=== PATIENT | female | born 1990 | race Caucasian/White ===

== ENCOUNTER 2017-03-23 10:17 | Observation (INO) | payer MEDICAID ==
[2017-03-23 12:07] VITALS: BP 129/56; PULSE 88
== END 2017-03-23 11:50 | disposition home or self-care (01) ==
LOC: OB 10:17
PROVIDERS: ADMIT Family Medicine; ATTEND Family Medicine
DX: Z34.83 Encounter for supervision of other normal pregnancy, third trimester (principal)
CPT/HCPCS: 59025; G0378

== ENCOUNTER 2017-04-12 08:12 | Observation (INO) | payer MEDICAID ==
--- NOTE | 2017-04-12 09:51 | XRAY ---
Indication: Evaluate SINDHU. Limited OB ultrasound performed to evaluate SINDHU. There is a single viable intrauterine with heart rate 135 BPM. 4 quadrant SINDHU is 11.2 cm, previously 14.3 cm February 24, 2017.
[2017-04-12 10:23] VITALS: BP 113/64; PULSE 90
== END 2017-04-12 10:10 | disposition home or self-care (01) ==
LOC: OB 08:12
PROVIDERS: ADMIT Family Medicine; ATTEND Family Medicine
DX: Z34.83 Encounter for supervision of other normal pregnancy, third trimester (principal)
CPT/HCPCS: 59025; 76815; G0378

== ENCOUNTER 2017-04-15 08:11 | Observation (INO) | payer MEDICAID ==
[2017-04-15 09:14] VITALS: BP 114/55; PULSE 82
== END 2017-04-15 09:35 | disposition home or self-care (01) ==
LOC: OB 08:11
PROVIDERS: ADMIT Family Medicine; ATTEND Family Medicine
DX: Z34.83 Encounter for supervision of other normal pregnancy, third trimester (principal)
CPT/HCPCS: 59025; G0378

== ENCOUNTER 2017-04-16 01:50 | Inpatient (IN) | payer MEDICAID ==
[2017-04-16] MEDS ORDERED: Cervidil 10 MG VAG SCH (18:00)
[2017-04-16] MEDS ORDERED: XYLOCAINE 1% HCL 20 ML MDV IJ PRN (18:00)
[2017-04-16] MEDS ORDERED: Lactated Ringers 1,000 ML IV SCH (18:00)
[2017-04-16] MEDS ORDERED: PITOCIN 30 UNITS/ LR 500 ML 500 ML IV SCH ×2 (18:00)
[2017-04-16] MEDS ORDERED: OMNIPEN 2 GM / NACL 100ML 100 ML IV SCH (18:00)
[2017-04-16] MEDS ORDERED: BRETHINE 1 MG/ML SQ PRN (18:00)
[2017-04-16] MEDS ORDERED: OMNIPEN 2 GM IV SCH (18:00)
[2017-04-16 19:14] LABS: BASOPHIL % 0.3 % (0.0-0.4); Basophil (Absolute #) 0.03 (0-0.4); Eosinophil % 4.4 % (0.00-5.0); Eosinophil (Absolute #) 0.38 (0-0.5); Granulocyte Absolute (ANC) 5.96 (1.4-6.9); Granulocytes % 69.4 % (36.0-66.0); Hematocrit 34.1 % (35-47); Hemoglobin 11.4 gm/dl (12.0-16.0); Lymphocytes % 20.9 % (24.0-44.0); Mean Cell Volume 90.2 fl (78-100); Mean Corpuscular Hgb Concent. 33.4 g/dl (32-36); Mean Platelet Volume 11.5 fl (6-9.5); Monocyte (Absolute #) 0.43 (0.0-1.3); Platelet Count 216 K/mm3 (150-450); Red Blood Count 3.78 M/mm3 (4.1-5.4); Red Cell Distribution Width 13.7 % (11.5-14.0); White Blood Count 8.6 K/mm3 (4.0-10.5)
[2017-04-16 19:19] LABS: Mean Corpuscular Hemoglobin 30.1 pg (26-32)
[2017-04-16 19:42] LABS: Amphetamine,Urine NEG. (NEGATIVE); Barbiturate,Urine NEG. (NEGATIVE); Benzodiazepine,Urine NEG. (NEGATIVE); Cocaine,Urine NEG. (NEGATIVE); Methadone,Urine NEG. (NEGATIVE); Opiate,Urine NEG. (NEGATIVE); PCP,Urine NEG. (NEGATIVE); THC,Urine NEG. (NEGATIVE)
[2017-04-16] MEDS ORDERED: OMNIPEN 1GM / NaCl 100ML 100 ML IV SCH (22:00)
[2017-04-16] MEDS: TYLENOL EXTRA STRENGTH 500 MG PO PRN (23:20)
[2017-04-17] MEDS ORDERED: Nubain 10 MG/ML IV ONE
[2017-04-17] MEDS ORDERED: OMNIPEN 2 GM / NACL 100ML 100 ML ONE (02:04)
[2017-04-17] MEDS ORDERED: Dermoplast Spray TP PRN (03:52)
[2017-04-17] MEDS ORDERED: Ambien 10 MG PO PRN (03:52)
[2017-04-17] MEDS ORDERED: CORTISONE 1% CREAM TP PRN (03:52)
[2017-04-17] MEDS ORDERED: NORCO 5/325 MG PO PRN (03:52)
[2017-04-17] MEDS ORDERED: Adacel Vial IM ONE (03:52)
[2017-04-17] MEDS ORDERED: TUCKS TP PRN (03:52)
[2017-04-17] MEDS ORDERED: LANSINOH 40 GM TOP PRN (03:52)
[2017-04-17] MEDS ORDERED: Mylicon 80MG PO PRN (03:52)
[2017-04-17] MEDS ORDERED: Restoril 15 MG PO PRN (03:52)
[2017-04-17] MEDS: MOTRIN 400 MG PO PRN ×2 (04:06→11:52)
[2017-04-17 06:15] VITALS: O2SAT 100
[2017-04-17] MEDS: Colace 100 MG PO SCH ×2 (09:53→22:04)
[2017-04-17] MEDS: FERREX 150 PO SCH (09:53)
[2017-04-18 05:38] LABS: BASOPHIL % 0.2 % (0.0-0.4); Basophil (Absolute #) 0.02 (0-0.4); Eosinophil % 4.5 % (0.00-5.0); Granulocyte Absolute (ANC) 6.93 (1.4-6.9); Granulocytes % 61.9 % (36.0-66.0); Hematocrit 31.1 % (35-47); Hemoglobin 10.2 gm/dl (12.0-16.0); Lymphocyte (Absolute #) 3.16 (1.0-4.6); Lymphocytes % 28.2 % (24.0-44.0); Mean Corpuscular Hgb Concent. 32.8 g/dl (32-36); Monocyte (Absolute #) 0.58 (0.0-1.3); Monocytes % 5.2 % (0.0-12.0); Platelet Count 258 K/mm3 (150-450); Red Blood Count 3.38 M/mm3 (4.1-5.4); Red Cell Distribution Width 13.8 % (11.5-14.0); White Blood Count 11.2 K/mm3 (4.0-10.5)
[2017-04-18 05:43] LABS: Mean Corpuscular Hemoglobin 30.1 pg (26-32)
[2017-04-18] MEDS: FERREX 150 PO SCH (11:29)
[2017-04-18] MEDS: Colace 100 MG PO SCH ×2 (11:29→22:30)
[2017-04-18] MEDS: TYLENOL EXTRA STRENGTH 500 MG PO PRN (17:07)
--- NOTE | 2017-04-19 09:14 | PCM.DS ---
Discharge Summary Date of Admission: 04/17/17 01:50 Admitting Physician: JACQUELINE FORDE Consults: Consults on Case 04/17/17 03:53 Notify Physician Primary Care Provider: JACQUELINE FORDE Allergies Allergies No Known Drug Allergies Allergy (Verified 04/16/17 20:25) Hospital Summary - Hospital Course Hospital Course: Mom is a 26 yo who came in at term for an induction of labor. Cervadil was placed, pt started chele, and cervadil was expelled. She progressed to 8-9 cm which is when I came in. She was noted to be 9 cm, had no epidural but well controlled breathing. She noted she had to push and baby's head crowned. Very short second stage. No repair needed. SROM at 9 cm with meconium stained fluid. RT present at , did suction a small amount of fluid from baby. Baby has done well. Mom's bleeding is nl. Up and about with no issues. Ready to d/c today. - Vitals & Intake/Output Vital Signs: Vital Signs Temperature 98.3 F 04/19/17 02:00 Pulse Rate 83 04/19/17 02:00 Respiratory Rate 18 04/19/17 02:00 Blood Pressure 113/72 04/19/17 02:00 O2 Sat by Pulse Oximetry 100 04/17/17 03:00 Intake & Output: Intake & Output 04/16/17 04/17/17 04/18/17 04/19/17 11:59 11:59 11:59 11:59 Intake Total 2191 1356 Output Total 2 Balance 2189 1356 Weight 67.36 kg - Lab Result Diagrams: 04/18/17 05:15 Discharge Exam General Appearance: no apparent distress, alert Neurologic Exam: oriented x 3, cooperative Skin Exam: normal color, warm, dry, No rash Ears, Nose, Throat Exam: moist mucous membranes Respiratory Exam: normal breath sounds, lungs clear, No crackles/rales, No rhonchi, No wheezing Cardiovascular Exam: regular rate/rhythm, normal heart sounds, No murmur Gastrointestinal/Abdomen Exam: soft, other (fundus firm under umbilicus), No tenderness Extremity Exam: normal inspection, No pedal edema, No swelling Back Exam: normal inspection, No rash Final Diagnosis/Problem List - Final Discharge Diagnosis/Problem (1) Vaginal delivery Current Visit: Yes Status: Acute Assessment & Plan: Doing great, PPD #2 today, home. - Discharge Disposition: Home, Self-Care Condition: Good Prescriptions: New Docusate Sodium 100 mg [Colace 100 MG] 100 mg PO BID PRN #60 capsule PRN Reason: Constipation Continue Ranitidine HCl 150 mg PO BID Multivitamin [Multivitamins] 1 each PO DAILY Ferrous Fumarate 325 mg PO DAILY #30 tablet Follow up with: JACQUELINE FORDE [Primary Care Provider] - 1 Week
[2017-04-19 12:49] VITALS: BP 104/75; PULSE 78
[2017-04-19] MEDS: FERREX 150 PO SCH (12:51)
[2017-04-19] MEDS: Colace 100 MG PO SCH (12:51)
== END 2017-04-19 13:50 | disposition home or self-care (01) | DRG 775 ==
LOC: OB 01:50 → OBSVTOIN 04-17 01:50
PROVIDERS: ADMIT Family Medicine; ATTEND Family Medicine
PROC: 10E0XZZ Delivery of Products of Conception, External Approach (ICD-10-PCS; principal; 2017-04-17)
DX: O80 Encounter for full-term uncomplicated delivery (principal); Z3A.40 40 weeks gestation of pregnancy; Z37.0 Single live birth
CPT/HCPCS: 36415; 59025; 80307; 85025; 90715; 94799; G0378; J0290; J2300; J2590; A9270-GY

== ENCOUNTER 2021-04-05 03:03 | Emergency (ER) | payer MEDICAID, OTHER ==
[2021-04-05] MEDS ORDERED: Sodium Chloride 0.9% 1000 ML 1,000 ML IV STA ×2 (03:35→06:07)
[2021-04-05] MEDS ORDERED: Zofran 4 MG/2 ML VIAL IV ONE (03:35)
--- NOTE | 2021-04-05 03:35 | ERPHSYRPT ---
- History of Present Illness Historian: patient, family Exam Limitations: no limitations Patient Subjective Stated Complaint: abd pain, nausea and vomiting Triage Nursing Assessment: pt c/o lt sided abd pain, nausea and vomiting since 3pm yesterday. Abd soft with hyperactive bs x4 quad, nontender on palpation. Pt denies any diarrhea. Pt has vomited x4 times over 12-13 hour period. Pt is , approx 5-6 weeks. Pt's pain comes and goes in a wave. Timing/Duration: yesterday, worse Quality: aching Abdominal Pain Onset Location: LUQ, LLQ Pain Radiation: flank (Left) Severity of Pain-Max: moderate Severity of Pain-Current: moderate Associated Symptoms: loss of appetite, nausea, vomiting Previous symptoms: no prior history Hx Tetanus, Diphtheria Vaccination/Date Given: Yes Hx Influenza Vaccination/Date Given: No Hx Pneumococcal Vaccination/Date Given: No Immunizations Up to Date: Yes - History of Present Illness Time Seen by Provider: 04/05/21 03:30 Physician History: This is a 30-year-old white female who has a history of bipolar disorder and depression and is a patient of Dr. Joao Odell who presents with left-sided abdominal pain and left flank pain. She has associated vomiting. She has had several episodes of vomiting since 3 PM yesterday. She denies diarrhea. Patient is approximately 5 weeks . (HIMANSHU HOLLIDAY) Allergies/Adverse Reactions: No Known Drug Allergies Allergy (Verified 04/05/21 03:27) Home Medications: No Reportable Medications [No Reported Medications] 04/05/21 [History] Travel Risk - International Travel Have you traveled outside of the country in past 3 weeks: No - Coronavirus Screening Are you exhibiting any of the following symptoms?: No Close contact with a COVID-19 positive Pt in past 14-21 Days: No - Vaccine Status Have you recieved a Covid-19 vaccination: No - Review of Systems Constitutional: No Symptoms Eyes: No Symptoms Ears, Nose, & Throat: No Symptoms Respiratory: No Symptoms Cardiac: No Symptoms Abdominal/Gastrointestinal: Abdominal Pain, Nausea, Vomiting, Appetite Changes, No Diarrhea Genitourinary Symptoms: Flank Pain (Left), , No Dysuria, No Frequency Musculoskeletal: No Symptoms Skin: No Symptoms Neurological: No Symptoms Psychological: No Symptoms Endocrine: No Symptoms Hematologic/Lymphatic: No Symptoms Immunological/Allergic: No Symptoms All Other Systems: Reviewed and Negative - Past Medical History Pertinent Past Medical History: Yes Neurological History: No Pertinent History ENT History: No Pertinent History Cardiac History: No Pertinent History Respiratory History: No Pertinent History Endocrine Medical History: No Pertinent History Musculoskeletal History: No Pertinent History GI Medical History: No Pertinent History History: No Pertinent History Psycho-Social History: Bipolar, Depression Female Reproductive Disorders: No Pertinent History - Past Surgical History Past Surgical History: No Neuro Surgical History: No Pertinent History Cardiac: No Pertinent History Respiratory: No Pertinent History Gastrointestinal: No Pertinent History Genitourinary: No Pertinent History Musculoskeletal: No Pertinent History Female Surgical History: No Pertinent History - Social History Smoking Status: Current every day smoker How long have you smoked: 16 yrs Exposure to second hand smoke: Yes Drug Use: none Patient Lives Alone: No Significant Family History: no pertinent family hx - Female History Hx Last Menstrual Period: 01/27/21 Hx Now: Yes Gestational Age: 5-6 weeks - Physical Exam General Appearance: mild distress, alert, anxiety Eye Exam: PERRL/EOMI, eyes nml inspection, No scleral icterus Ears, Nose, Throat Exam: normal ENT inspection, moist mucous membranes Neck Exam: normal inspection, non-tender, supple, full range of motion Respiratory Exam: normal breath sounds, lungs clear, airway intact, No chest tenderness, No respiratory distress Cardiovascular Exam: tachycardia Gastrointestinal/Abdomen Exam: soft, normal bowel sounds, tenderness (Left side), No guarding, No rebound Pelvic Exam: not done Rectal Exam: not done Back Exam: normal inspection, normal range of motion, No CVA tenderness, No vertebral tenderness Extremity Exam: normal inspection, normal range of motion, pelvis stable Neurologic Exam: alert, oriented x 3, cooperative, motor teacher II-XII nml as tested, normal mood/affect, nml cerebellar function, nml station & gait, sensation nml Skin Exam: normal color, warm, dry Lymphatic Exam: No adenopathy SpO2 Interpretation: normal SpO2: 99 O2 Delivery: Room Air - Nursing Vital Signs Nursing Vital Signs: Initial Vital Signs Temperature 98.1 F 04/05/21 03:17 Pulse Rate 113 H 04/05/21 03:17 Respiratory Rate 20 04/05/21 03:17 Blood Pressure 108/62 04/05/21 03:17 O2 Sat by Pulse Oximetry 99 04/05/21 03:17 Pain Scale Pain Intensity 2 - Course Nursing assessment & vital signs reviewed: Yes Ordered Tests: Active Orders 24 hr Category Date Time Status IV Insertion STAT Care 04/05/21 03:35 Active GALLBLADDER [US] Stat Exams 04/05/21 06:36 Taken AMYLASE Stat Lab 04/05/21 03:55 Completed CBC W DIFF Stat Lab 04/05/21 03:55 Completed CMP Stat Lab 04/05/21 03:55 Completed HCG, Quantitative (Inhouse) Stat Lab 04/05/21 04:13 Completed HCG,QUALITATIVE URINE Stat Lab 04/05/21 03:55 Completed LIPASE Stat Lab 04/05/21 03:55 Completed Lactic Acid Stat Lab 04/05/21 04:13 Completed UA W/RFX UR CULTURE Stat Lab 04/05/21 03:55 Completed Medication Summary Generic Name Dose Route Start Last Admin Trade Name Freq PRN Reason Stop Dose Admin Sodium Chloride 1,000 mls @ 125 mls/hr 04/05/21 08:45 04/05/21 08:36 Sodium Chloride 0.9% 1000 Ml IV 05/05/21 08:44 125 mls/hr .Q8H LOUISA Administration Discontinued Medications Generic Name Dose Route Start Last Admin Trade Name Freq PRN Reason Stop Dose Admin Sodium Chloride 1,000 mls @ 999 mls/hr 04/05/21 03:35 04/05/21 06:08 Sodium Chloride 0.9% 1000 Ml IV 04/05/21 04:35 Infused .Q1H1M STA Infusion Sodium Chloride Confirm 04/05/21 04:11 Sodium Chloride 0.9% 1000 Ml Administered 04/05/21 04:12 Dose 1,000 mls @ ud .ROUTE .STK-MED ONE Sodium Chloride Confirm 04/05/21 06:04 Sodium Chloride 0.9% 1000 Ml Administered 04/05/21 06:05 Dose 1,000 mls @ ud .ROUTE .STK-MED ONE Sodium Chloride 1,000 mls @ 999 mls/hr 04/05/21 06:07 04/05/21 07:17 Sodium Chloride 0.9% 1000 Ml IV 04/05/21 07:07 Infused .Q1H1M STA Infusion Ondansetron HCl 4 mg 04/05/21 03:35 04/05/21 04:17 Ondansetron Hcl 4 Mg/2 Ml Vial IV 04/05/21 03:36 4 mg STAT ONE Administration Ondansetron HCl Confirm 04/05/21 04:11 Ondansetron Hcl 4 Mg/2 Ml Vial Administered 04/05/21 04:12 Dose 4 mg .ROUTE .STK-MED ONE Lab/Rad Data: Laboratory Result Diagrams 04/05/21 03:55 04/05/21 03:55 Laboratory Results 04/05/21 04/05/21 04/05/21 Range/Units 04:13 04:13 03:55 WBC (4.0-10.5) K/mm3 RBC (4.1-5.4) M/mm3 Hgb (12.0-16.0) gm/dl Hct (35-47) % MCV (78-100) fl MCH (26-32) pg MCHC (32-36) g/dl RDW (11.5-14.0) % Plt Count (150-450) K/mm3 MPV (7.5-11.0) fl Gran % (36.0-66.0) % Eos # (Auto) (0-0.5) Absolute Lymphs (auto) (1.0-4.6) Absolute Monos (auto) (0.0-1.3) Lymphocytes % (24.0-44.0) % Monocytes % (0.0-12.0) % Eosinophils % (0.00-5.0) % Basophils % (0.0-0.4) % Absolute Granulocytes (1.4-6.9) Basophils # (0-0.4) Sodium 137 (137-145) mmol/L Potassium 4.0 (3.5-5.1) mmol/L Chloride 104 (98-107) mmol/L Carbon Dioxide 22 (22-30) mmol/L Anion Gap 15.1 H (5-15) MEQ/L BUN 8 (7-17) mg/dL Creatinine 0.64 (0.52-1.04) mg/dL Estimated GFR > 60.0 ML/MIN Glucose 101 (74-106) mg/dL Lactic Acid 0.9 (0.4-2.0) Calcium 9.6 (8.4-10.2) mg/dL Total Bilirubin 3.40 H (0.2-1.3) mg/dL AST 483 H (14-36) U/L ALT 393 H (0-35) U/L Alkaline Phosphatase 125 (38-126) U/L Serum Total Protein 7.5 (6.3-8.2) g/dL Albumin 4.4 (3.5-5.0) g/dL Amylase 6025 H (30-110) U/L Lipase 75669 H (23-300) U/L Beta HCG, Quant 66409 mIU/ml Urine Color (YELLOW) Urine Appearance (CLEAR) Urine pH (5-6) Ur Specific Berkley (1.005-1.025) Urine Protein (Negative) Urine Ketones (NEGATIVE) Urine Blood (0-5) Uriah/ul Urine Nitrite (NEGATIVE) Urine Bilirubin (NEGATIVE) Urine Urobilinogen (0-1) mg/dL Ur Leukocyte Esterase (NEGATIVE) Urine WBC (Auto) (0-5) /HPF Urine RBC (Auto) (0-2) /HPF U Epithel Cells (Auto) (FEW) /HPF Urine Bacteria (Auto) (NEGATIVE) /HPF Urine Culture Reflexed (NO) Urine Glucose (NEGATIVE) mg/dL Urine HCG, Qual (Negative) 04/05/21 04/05/21 04/05/21 Range/Units 03:55 03:55 03:55 WBC 16.2 H (4.0-10.5) K/mm3 RBC 4.80 (4.1-5.4) M/mm3 Hgb 14.8 (12.0-16.0) gm/dl Hct 42.4 (35-47) % MCV 88.3 (78-100) fl MCH 30.8 (26-32) pg MCHC 34.9 (32-36) g/dl RDW 12.8 (11.5-14.0) % Plt Count 261 (150-450) K/mm3 MPV 10.0 (7.5-11.0) fl Gran % 91.2 H (36.0-66.0) % Eos # (Auto) 0.04 (0-0.5) Absolute Lymphs (auto) 0.68 L (1.0-4.6) Absolute Monos (auto) 0.70 (0.0-1.3) Lymphocytes % 4.2 L (24.0-44.0) % Monocytes % 4.3 (0.0-12.0) % Eosinophils % 0.2 (0.00-5.0) % Basophils % 0.1 (0.0-0.4) % Absolute Granulocytes 14.79 H (1.4-6.9) Basophils # 0.01 (0-0.4) Sodium (137-145) mmol/L Potassium (3.5-5.1) mmol/L Chloride (98-107) mmol/L Carbon Dioxide (22-30) mmol/L Anion Gap (5-15) MEQ/L BUN (7-17) mg/dL Creatinine (0.52-1.04) mg/dL Estimated GFR ML/MIN Glucose (74-106) mg/dL Lactic Acid (0.4-2.0) Calcium (8.4-10.2) mg/dL Total Bilirubin (0.2-1.3) mg/dL AST (14-36) U/L ALT (0-35) U/L Alkaline Phosphatase (38-126) U/L Serum Total Protein (6.3-8.2) g/dL Albumin (3.5-5.0) g/dL Amylase (30-110) U/L Lipase (23-300) U/L Beta HCG, Quant mIU/ml Urine Color SUMANTH (YELLOW) Urine Appearance CLEAR (CLEAR) Urine pH 7.0 (5-6) Ur Specific Berkley 1.000 (1.005-1.025) Urine Protein NEGATIVE (Negative) Urine Ketones NEGATIVE (NEGATIVE) Urine Blood NEGATIVE (0-5) Uriah/ul Urine Nitrite NEGATIVE (NEGATIVE) Urine Bilirubin NEGATIVE (NEGATIVE) Urine Urobilinogen 4 (0-1) mg/dL Ur Leukocyte Esterase NEGATIVE (NEGATIVE) Urine WBC (Auto) 3-5 (0-5) /HPF Urine RBC (Auto) NONE (0-2) /HPF U Epithel Cells (Auto) NONE (FEW) /HPF Urine Bacteria (Auto) NONE (NEGATIVE) /HPF Urine Culture Reflexed NO (NO) Urine Glucose NEGATIVE (NEGATIVE) mg/dL Urine HCG, Qual POSITIVE (Negative) - Progress Progress: improved, pain not gone completely, re-examined Counseled pt/family regarding: lab results, diagnosis - Progress Progress Note: 04/05/21 06:27 Medical decision making: This patient has acute pancreatitis. She does not consume alcohol. She has had no trauma. She denies any medications. She has no triglycerides or cholesterol issues. Most likely, given the fact she has elevated LFTs and elevated amylase and lipase, she has gallstone pancreatitis. I spoke with Dr. Delcid. We will order a gallbladder ultrasound in order to determine if there is a common bile duct stone. If there is a common bile duct stone, patient will need to be transferred to a facility that can perform an ERCP. The patient is 5 weeks . Her OB will be Dr. Joao Odell. 04/05/21 06:44 Transfer of care to Dr. Hahn here in the emergency department at shift change. He will follow up on the gallbladder ultrasound and make final disposition. (HIMANSHU HOLLIDAY) 04/05/21 08:33 Patient is checked out to me at shift change from Dr. Holliday with pending ultrasound. Patient presented with upper abdominal pain/left-sided flank pain. On my evaluation patient is complaining that she had a pain in the upper abdomen which is improved now. She has elevated liver enzymes with total bili of 3.4 and pancreatitis with lipase in 37k and amylase and 6K, ultrasound showed multiple gallstones with dilated CBD up 0.87 cm. I believe patient needs ERCP first before cholecystectomy. hCG quant is in 10,000's. Does not have any lower abdomen tenderness are complaining of pain and no vaginal bleeding or discharge. Discussed with patient the results of ultrasound and need for transfer to facility with ERCP services. Patient initially refused to go anywhere. Patient states "I have kids at home and there is no way I can go anywhere". Discussed with patient in detail about risks of leaving AGAINST MEDICAL ADVICE with worsening of condition and would affect her , pancreatic necrosis/sepsis which could be detrimental. Talked with her and patient in detail again and she agreed with transfer. I have called [facility] with no GI services with ERCP available in both hospitals. [facility] is not excepting patients. Called [facility] and discussed case with Dr. Bonilla and [facility], reviewed history, current work-up, agreed with transfer. Agreed with holding off on antibiotics for now. (DEVENDRA HAHN) - Departure Departure Disposition: Transfer Critical Care Time: No - Departure Clinical Impression: Acute pancreatitis, Elevated LFTs, , Cholecystitis with cholelithiasis Condition: Stable Referrals: JACQUELINE LEWIS [Primary Care Provider] - Follow up/PCP as directed
[2021-04-05] MEDS ORDERED: Zofran 4 MG/2 ML VIAL ONE (04:11)
[2021-04-05] MEDS ORDERED: Sodium Chloride 0.9% 1000 ML 1,000 ML ONE ×3 (04:11→08:35)
[2021-04-05 04:18] LABS: Absolute Neutrophil Ct (ANC) 14.79 (1.4-6.9); Basophil (Absolute #) 0.01 (0-0.4); Eosinophil % 0.2 % (0.00-5.0); Eosinophil (Absolute #) 0.04 (0-0.5); Hematocrit 42.4 % (35-47); Hemoglobin 14.8 gm/dl (12.0-16.0); Lymphocyte (Absolute #) 0.68 (1.0-4.6); Lymphocytes % 4.2 % (24.0-44.0); Mean Cell Volume 88.3 fl (78-100); Mean Corpuscular Hemoglobin 30.8 pg (26-32); Mean Corpuscular Hgb Concent. 34.9 g/dl (32-36); Monocytes % 4.3 % (0.0-12.0); Neutrophil % 91.2 % (36.0-66.0); Platelet Count 261 K/mm3 (150-450); Red Cell Distribution Width 12.8 % (11.5-14.0); White Blood Count 16.2 K/mm3 (4.0-10.5)
[2021-04-05 04:25] LABS: Appearance CLEAR (CLEAR); Bilirubin NEGATIVE (NEGATIVE); Blood NEGATIVE Ery/ul (0-5); Glucose NEGATIVE (NEGATIVE); Ketones NEGATIVE (NEGATIVE); Leukocyte Esterase NEGATIVE (NEGATIVE); Nitrite NEGATIVE (NEGATIVE); Protein,Urine Dip NEGATIVE (Negative); Urobilinogen 4 mg/dL (0-1)
[2021-04-05 04:31] LABS: ALBUMIN 4.4 g/dL (3.5-5.0); ALKALINE PHOSPHATASE 125 U/L (38-126); ANION GAP 15.1 MEQ/L (5-15); BLOOD UREA NITROGEN 8 mg/dL (7-17); CHLORIDE 104 mmol/L (98-107); Calcium 9.6 mg/dL (8.4-10.2); Carbon Dioxide 22 mmol/L (22-30); Creatinine 1 0.64 mg/dL (0.52-1.04); EST GLOMERULAR FILTRATION RATE > 60.0 ML/MIN; Glucose 101 mg/dL (74-106); SGOT/AST 483 U/L (14-36); SODIUM 137 mmol/L (137-145); Total Protein 7.5 g/dL (6.3-8.2)
[2021-04-05 04:37] LABS: SGPT/ALT 393 U/L (0-35)
[2021-04-05 05:40] LABS: AMYLASE 6025 U/L (30-110)
[2021-04-05 05:42] LABS: LIPASE 37559 U/L (23-300)
[2021-04-05] MEDS ORDERED: Sodium Chloride 0.9% 1000 ML 1,000 ML IV SCH (08:45)
[2021-04-05 12:05] VITALS: BP 98/70; PULSE 96; O2SAT 96
== END 2021-04-05 12:33 | disposition short-term general hospital (02) ==
LOC: ED 03:03
DX: O99.611 Diseases of the digestive system complicating pregnancy, first trimester (principal); K80.10 Calculus of gallbladder with chronic cholecystitis without obstruction; K85.10 Biliary acute pancreatitis without necrosis or infection; Z3A.01 Less than 8 weeks gestation of pregnancy; R74.01 Elevation of levels of liver transaminase levels; R10.12 Left upper quadrant pain; R10.32 Left lower quadrant pain; R11.2 Nausea with vomiting, unspecified; Z72.0 Tobacco use
CPT/HCPCS: 36000; 36415; 76705; 80053; 81001; 82150; 83605; 83690; 84702; 84703; 85025; 96360; 96361; 96374; 99285; J2405

== ENCOUNTER 2021-10-07 06:00 | Day surgery (SDC) | payer OTHER ==
[2021-10-07] MEDS ORDERED: Lactated Ringers 1,000 ML IV SCH (06:30)
[2021-10-07] MEDS ORDERED: CEFAZOLIN 2 GM-D5W BAG** 2 GM/50 ML ML IV SCH (06:30)
[2021-10-07 06:43] VITALS: O2SAT 98
[2021-10-07] MEDS ORDERED: Xylocaine 1% Vial 30 ML PF IJ ONE (07:05)
[2021-10-07] MEDS ORDERED: XYLOCAINE 1% HCL 20 ML MDV ONE (07:06)
[2021-10-07] MEDS ORDERED: XYLOCAINE 1%/Epi 1:100000 MDV 20 ML ONE (07:11)
[2021-10-07] MEDS ORDERED: ASTRINGYN 8 GM TP ONE (07:12)
[2021-10-07] MEDS ORDERED: Versed 2 MG/2 ML Injection ONE (07:41)
[2021-10-07] MEDS ORDERED: DIPRIVAN 200 MG/20 ML IV ONE ×2 (07:41→07:59)
[2021-10-07] MEDS ORDERED: SUBLIMAZE 100 MCG/2 ML ONE (07:41)
[2021-10-07] MEDS ORDERED: Decadron 4 MG INJ ONE (07:57)
[2021-10-07] MEDS ORDERED: Zofran 4 MG/2 ML VIAL ONE (08:07)
[2021-10-07] MEDS ORDERED: TORAdol 30 mg Injection ONE (08:08)
[2021-10-07 09:09] VITALS: BP 145/70; PULSE 95
--- NOTE | 2021-10-08 08:38 | OP ---
SURGERY DATE/TIME: 10/07/2021 0749 PREOPERATIVE DIAGNOSIS: Recurrent cervical dysplasia. POSTOPERATIVE DIAGNOSIS: Recurrent cervical dysplasia. PROCEDURE: Loop electrosurgical excision procedure (LEEP). SURGEON: Baldemar Conn D.O. [employer]PERINTENDENT [employer]: Michael José surgical supervisor. ANESTHESIA: General. ESTIMATED BLOOD LOSS: Minimal. COMPLICATIONS: None. INDICATIONS: The risks, benefits, indications and alternatives of the procedure were reviewed with the patient prior to procedure. The patient understood the risk of infection, bleeding, bowel injury, bladder injury, ureteral injury, cervical incompetence associated with this procedure and desires to have this procedure as a possible means to alleviate her current medical condition. DESCRIPTION OF PROCEDURE AND FINDINGS: At this point the patient is taken to the operating room, given general sedation, placed in the dorsal lithotomy position, prepped and draped in the usual sterile fashion. A coated speculum is then placed in the patient's vagina and the cervix was then injected circumferentially with 1% lidocaine with epinephrine and approximately 10 cc were used. From this point the loop instrument was used to excise the ectocervical portion where an in depth of 7 to 8 mm of tissue was excised from a right to left motion. An additional 2 to 3 mm of endocervical tissue was excised in a similar fashion. From this point the loop caponizer ball was then used to ablate the endocervical region and was done so without complication. Hemostasis was obtained. From this point, all instruments were then removed from the patient's vaginal region. The patient was taken out of the dorsal lithotomy position and was then taken to the recovery room in stable condition. All instruments and laps were accounted for x2.
== END 2021-10-07 09:16 | disposition home or self-care (01) ==
LOC: SDC 06:00
PROVIDERS: ATTEND Obstetrics & Gynecology
DX: N87.9 Dysplasia of cervix uteri, unspecified (principal)
CPT/HCPCS: 81025; J0690; J1100; J1885; J2001; J2250; J2405; J2704; J3010; A9270-GY

== ENCOUNTER 2022-06-11 20:17 | Emergency (ER) | payer OTHER ==
[2022-06-11 21:27] VITALS: BP 112/84; PULSE 78
--- NOTE | 2022-06-11 21:29 | ERPHSYRPT ---
- History of Present Illness Time Seen by Provider: 06/11/22 21:25 Historian: patient Exam Limitations: no limitations Patient Subjective Stated Complaint: left side pain, flank pain and upper epigastric pain Triage Nursing Assessment: pt ambulated into ER without diff, spouse at bedside. Pt was cooking dinner this evening and became hot and had pain to upper epigastic region. Pain then went to left side and flank area. Abd soft with active bs x4 quad, nontender on palpation. Pt's LBM was 06/10/22. Pt denies any nausea, vomiting or diarrhea at this time but had some nausea when the episode of pain occured at home. Physician History: 31-year-old female presents emergency department for evaluation. Patient states she was at home experience epigastric pain that went into her left flank. Patient states she tends to experience this symptom intermittently. Patient states the pain lasted longer than usual. However upon arrival to our ED the pain has completely subsided. Patient has no abdominal pain. No nausea vomiting. No diarrhea. No rash. No trauma. Patient completely asymptomatic. Physical exam completely benign. Vitals normal. Patient states she does not want to be worked up at this time as she is feeling back to normal. Patient states she will follow-up with her primary care doctor for reevaluation. Significant other at bedside. They voiced no other complaints or concerns at this time. Portions of this note were created with voice recognition technology. There may be grammatical, spelling, punctuation or sound alike errors Timing/Duration: today Activities at Onset: none (Patient was at home cooking dinner when symptoms started.) Quality: aching Abdominal Pain Onset Location: epigastric Pain Radiation: flank Severity of Pain-Max: moderate Severity of Pain-Current: none Modifying Factors: Improves With: nothing Associated Symptoms: nausea (Some nausea when pain occurred but then nausea and pain resolved) Previous symptoms: same symptoms as today Allergies/Adverse Reactions: No Known Drug Allergies Allergy (Verified 06/11/22 20:38) Home Medications: No Reportable Medications [No Reported Medications] 04/05/21 [History] Hx Tetanus, Diphtheria Vaccination/Date Given: Yes Hx Influenza Vaccination/Date Given: No Hx Pneumococcal Vaccination/Date Given: No Travel Risk - International Travel Have you traveled outside of the country in past 3 weeks: No - Coronavirus Screening Are you exhibiting any of the following symptoms?: No Close contact with a COVID-19 positive Pt in past 14-21 Days: No - Vaccine Status Have you recieved a Covid-19 vaccination: No - Review of Systems Constitutional: No Symptoms, No Fever, No Chills Eyes: No Symptoms Ears, Nose, & Throat: No Symptoms Respiratory: No Symptoms, No Cough, No Dyspnea Cardiac: No Symptoms, No Chest Pain, No Edema, No Syncope Abdominal/Gastrointestinal: No Symptoms, No Abdominal Pain, No Nausea, No Vomiting, No Diarrhea Genitourinary Symptoms: No Symptoms, No Dysuria Musculoskeletal: No Symptoms, No Back Pain, No Neck Pain Skin: No Symptoms, No Rash Neurological: No Symptoms, No Dizziness, No Focal Weakness, No Sensory Changes Psychological: No Symptoms Endocrine: No Symptoms Hematologic/Lymphatic: No Symptoms Immunological/Allergic: No Symptoms All Other Systems: Reviewed and Negative - Past Medical History Pertinent Past Medical History: Yes Neurological History: No Pertinent History ENT History: No Pertinent History Cardiac History: No Pertinent History Respiratory History: No Pertinent History Endocrine Medical History: No Pertinent History Musculoskeletal History: No Pertinent History GI Medical History: Gallbladder Disease History: No Pertinent History Psycho-Social History: Bipolar, Depression Female Reproductive Disorders: Other Other Medical History: recurrent cervical dysplasia. stent for duct for gallbladder - Past Surgical History Past Surgical History: Yes Neuro Surgical History: No Pertinent History Cardiac: No Pertinent History Respiratory: No Pertinent History Gastrointestinal: Cholecystectomy Genitourinary: No Pertinent History Musculoskeletal: No Pertinent History Female Surgical History: No Pertinent History - Social History Smoking Status: Current every day smoker How long have you smoked: 20 yrs Exposure to second hand smoke: Yes Drug Use: none Patient Lives Alone: No Significant Family History: no pertinent family hx - Female History Hx Last Menstrual Period: 06/08/22 Hx Now: No - Nursing Vital Signs Nursing Vital Signs: Initial Vital Signs Pulse Rate 72 06/11/22 20:28 Respiratory Rate 16 06/11/22 20:28 Blood Pressure 135/93 06/11/22 20:28 O2 Sat by Pulse Oximetry 100 06/11/22 20:28 Pain Scale Pain Intensity 3 - Physical Exam General Appearance: no apparent distress, alert Eye Exam: PERRL/EOMI, eyes nml inspection Ears, Nose, Throat Exam: normal ENT inspection, pharynx normal, moist mucous membranes Neck Exam: normal inspection, non-tender, supple, full range of motion Respiratory Exam: normal breath sounds, lungs clear, airway intact, No respiratory distress Cardiovascular Exam: regular rate/rhythm, normal heart sounds, normal peripheral pulses Gastrointestinal/Abdomen Exam: soft, normal bowel sounds, No tenderness, No mass Back Exam: normal inspection, normal range of motion, No CVA tenderness, No vertebral tenderness Extremity Exam: normal inspection, normal range of motion, pelvis stable Neurologic Exam: alert, oriented x 3, cooperative, normal mood/affect, nml cerebellar function, sensation nml, No motor deficits Skin Exam: normal color, warm, dry SpO2 Interpretation: normal SpO2: 100 O2 Delivery: Room Air - Course Nursing assessment & vital signs reviewed: Yes - Progress Progress: pain not gone completely Progress Note: 31-year-old female presents to our ED for evaluation of transient abdominal pain and nausea. Symptoms resolved. Patient declined a work-up as she is currently asymptomatic. Physical exam benign. Per patient's request we will discharge patient home. Patient will follow-up with her primary care doctor within 48 hours for reevaluation. Portions of this note were created with voice recognition technology. There may be grammatical, spelling, punctuation or sound alike errors Complexity of problem addressed is low acute uncomplicated now resolved, No critical care time. Complexity of data reviewed and analyzed is none. Patient declined work-up as her symptoms resolved upon arrival to our ED. Risk of complication and or risk morbidity/mortality of patient management is minimal Patient remains asymptomatic. Will discharge home. Patient will follow-up with primary care doctor within 48 hours for reevaluation. Time spent in discharge is approximately 10 minutes. Diagnosis is abdominal pain. Vital stable. Portions of this note were created with voice recognition technology. There may be grammatical, spelling, punctuation or sound alike errors 06/11/22 21:29 Counseled pt/family regarding: diagnosis, need for follow-up - Departure Departure Disposition: Home Clinical Impression: Abdominal pain Condition: Stable Critical Care Time: No Referrals: JACQUELINE LEWIS [Primary Care Provider] - Follow up/PCP as directed Additional Instructions: Discharge/Care Plan YOSI WREN was seen on 06/11/22 in the Emergency Room. The patient was counseled regarding Diagnosis,Lab results, Imaging studies, need for follow up and when to return to the Emergency Room. Prescriptions given: Discharge Note I have spoken with the patient and/or caregivers. I have explained the patient's condition, diagnosis and treatment plan based on the information available to me at this time. I have answered the patient's and/or caregiver's questions and addressed any concerns. The patient and/or caregivers have as good understanding of the patient's diagnosis, condition and treatment plan as can be expected at this point. The vital signs have been stable. The patient's condition is stable and appropriate for discharge from the emergency department. The patient will pursue further outpatient evaluation with the primary care physician or other designated or consulting physician as outlined in the discharge instructions. The patient and/or caregivers are agreeable to this plan of care and follow-up instructions have been explained in detail. The patient and/or caregivers have received these instruction. The patient/and or caregivers are aware that any significant change in condition or worsening of symptoms should prompt an immediate return to this or the closest emergency department or call 911.
[2022-06-11 21:30] VITALS: O2SAT 100
== END 2022-06-11 21:29 | disposition home or self-care (01) ==
LOC: ED 20:17
DX: R10.13 Epigastric pain (principal); Z28.310 Unvaccinated for COVID-19; Z72.0 Tobacco use
CPT/HCPCS: 99281